=== PATIENT | male | born 1965 | race Caucasian/White ===

== ENCOUNTER 2021-10-17 10:13 | Emergency (ER) | payer OTHER, SELFPAY ==
[2021-10-17 10:20] VITALS: BP 130/67; PULSE 95; RESP 14; TEMP 36.8; O2SAT 96; BMI 26.3
--- NOTE | 2021-10-17 13:25 | ED.HA ---
HPI - Headache <ARNOLD Mo - Last Filed: 10/17/21 13:55> General Chief Complaint: Headache Stated Complaint: Fall, Headaches Time Seen by Provider: 10/17/21 13:13 Mode of arrival: Ambulatory History of Present Illness HPI Narrative: Is a 56-year-old male presents to the emergency department 10 days after a fall where he struck the front of his head on the ground. Patient denies any loss of consciousness, states that since this fall, he has had a headache. He denies any nausea or vomiting at the time of injury or currently. He states that he saw stars after the fall, that improved throughout the day. He complains of difficulty concentrating, having difficulty at work, feeling overwhelmed easily with tasks, sensitivity to light, and overall feeling difficulty focusing on simple tasks. He denies any vision changes, dizziness, neck pain, fever, weakness, incontinence, back pain, gait changes or other. He endorses some right wrist and left ankle pain but denies any significant tenderness, and can ambulate without difficulty. He states that he has been taking Tylenol and ibuprofen at home and continues to have a headache. He states that he has been working every day, and his symptoms are worsened by the work that he does. 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 Patient states that he has had some right wrist pain but denies any limitations of movement, new sensation changes, open wound, or changes to his daily activities. Related Data Allergies Allergy/AdvReac Type Severity Reaction Status Date / Time No Known Drug Allergies Allergy Verified 10/17/21 10:20 Review of Systems <ARNOLD Mo - Last Filed: 10/17/21 13:55> Review of Systems Narrative: General: denies fever, chills, malaise, sweats, fatigue, or weakness Head/Neck: Endorses having a frontal headache, denies neck pain, dizziness Eyes: denies visual changes, eye pain Cardio: denies chest pain, palpitations, edema Respiratory: denies dyspnea, cough, orthopnea GI: denies abdominal pain, nausea, vomiting, or diarrhea : denies dysuria, hematuria, urinary retention, frequency or incontinence MSK: Endorses some right wrist and left ankle pain pain, muscle weakness Skin: denies rash, itching, skin lesions or other Neuro: denies numbness, tingling Patient History <ARNOLD Mo - Last Filed: 10/17/21 13:55> Social History Smoking Status: Unknown if ever smoked Smoking Status: Unknown if ever smoked alcohol intake frequency: holidays/special occasions only Substance Use Type: does not use Exam <ARNOLD Mo - Last Filed: 10/17/21 13:55> Narrative Exam Narrative: Independently reviewed vitals signs and nursing notes. General: cooperative, comfortable, in no acute distress, well developed and well groomed Head: atraumatic, symmetrical facial expressions Neck: supple, atraumatic, without lymphadenopathy. Eyes: pupils equal round and reactive, EOMI, conjunctiva normal Nose: nares patent, no rhinorrhea Mouth/Throat: uvula midline, moist mucus membranes Cardiovascular: regular rate and rhythm, no peripheral edema, warm extremities Respiratory: normal effort, able to speak in complete sentences, no audible wheezing, stridor, or rales. No retractions or tachypnea. GI: abdomen soft, nontender to palpation, nondistended, no masses, no exquisite tenderness with exam, without guarding or rebound. MSK: moves all extremities, ambulatory w/steady gait, neurovascularly intact, no weakness Skin: brisk capillary refill, no rash, no erythema, bruise present on patient's forehead Neuro: normal speech and cognition, A&O x3, normal tone Psych: mental status is grossly normal, congruent mood, normal affect, pleasant and cooperative Initial Vital Signs Initial Vital Signs: Vital Signs Temperature 98.3 F 10/17/21 10:20 Pulse Rate 95 H 10/17/21 10:20 Respiratory Rate 14 10/17/21 10:20 Blood Pressure 130/67 10/17/21 10:20 Pulse Oximetry 96 10/17/21 10:20 <Payal Flores DO - Last Filed: 10/20/21 23:24> Initial Vital Signs Initial Vital Signs: Vital Signs Temperature 98.3 F 10/17/21 10:20 Pulse Rate 95 H 10/17/21 10:20 Respiratory Rate 14 10/17/21 10:20 Blood Pressure 130/67 10/17/21 10:20 Pulse Oximetry 96 10/17/21 10:20 Course <ARNOLD Mo - Last Filed: 10/17/21 13:55> Orders Ordered: Discontinued Medications Acetaminophen (Acetaminophen 325 Mg Tablet) 975 mg PO NOW ONE Stop: 10/17/21 13:24 Last Admin: 10/17/21 13:30 Dose: 975 mg Documented by: TERESSA Dexamethasone (Dexamethasone 10 Mg/Ml Vial) 10 mg PO NOW ONE Stop: 10/17/21 13:24 Last Admin: 10/17/21 13:31 Dose: 10 mg Documented by: TERESSA Ketorolac Tromethamine (Ketorolac 30 Mg/Ml Vial) 15 mg IM NOW ONE Stop: 10/17/21 13:24 Last Admin: 10/17/21 13:31 Dose: 15 mg Documented by: TERESSA Metoclopramide HCl (Metoclopramide Hcl 10 Mg Tablet) 10 mg PO NOW ONE Stop: 10/17/21 13:31 Last Admin: 10/17/21 13:32 Dose: 10 mg Documented by: TERESSA Pantoprazole Sodium (Pantoprazole Dr 20 Mg Tablet) 20 mg PO NOW ONE Stop: 10/17/21 13:25 Last Admin: 10/17/21 13:31 Dose: 20 mg Documented by: TERESSA Vital Signs Vital signs: Vital Signs - 8 hr 10/17/21 10:20 Temperature 98.3 F Pulse Rate 95 H Respiratory Rate 14 Blood Pressure 130/67 Pulse Oximetry 96 <Payal Flores DO - Last Filed: 10/20/21 23:24> Orders Ordered: Discontinued Medications Acetaminophen (Acetaminophen 325 Mg Tablet) 975 mg PO NOW ONE Stop: 10/17/21 13:24 Last Admin: 10/17/21 13:30 Dose: 975 mg Documented by: TERESSA Dexamethasone (Dexamethasone 10 Mg/Ml Vial) 10 mg PO NOW ONE Stop: 10/17/21 13:24 Last Admin: 10/17/21 13:31 Dose: 10 mg Documented by: TERESSA Ketorolac Tromethamine (Ketorolac 30 Mg/Ml Vial) 15 mg IM NOW ONE Stop: 10/17/21 13:24 Last Admin: 10/17/21 13:31 Dose: 15 mg Documented by: TERESSA Metoclopramide HCl (Metoclopramide Hcl 10 Mg Tablet) 10 mg PO NOW ONE Stop: 10/17/21 13:31 Last Admin: 10/17/21 13:32 Dose: 10 mg Documented by: TERESSA Pantoprazole Sodium (Pantoprazole Dr 20 Mg Tablet) 20 mg PO NOW ONE Stop: 10/17/21 13:25 Last Admin: 10/17/21 13:31 Dose: 20 mg Documented by: TERESSA Vital Signs Vital signs: Vital Signs - 8 hr 10/17/21 10:20 Temperature 98.3 F Pulse Rate 95 H Respiratory Rate 14 Blood Pressure 130/67 Pulse Oximetry 96 MDM - Headache <ARNOLD Mo - Last Filed: 10/17/21 13:55> [facility] Narrative Medical decision making narrative: 56-year-old male presents to the emergency department 10 days after a fall forward complaining of a headache, difficulty concentrating, and symptoms consistent with post concussive syndrome. Patient did not have loss of consciousness, states he saw stars but did not have any emesis, weakness, incontinence, changes to his gait, mental status changes, or other neuro deficit. 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 He states that he has had soreness, no numbness or tingling, without any range of motion deficit, is ambulatory without any deficit, weakness, no objective signs including edema, discoloration, or wound. Patient was question why he is telling multiple staff members why he is angry about no x-ray, was open to discussing doing imaging of these with him, and patient became angry, threatening staff, talking about suing this property wood and hardware outfitter, and he needs documentation of everything. He states that he has done here, does not 1 a follow medical advice, and will be leaving the emergency department against medical advice. Discharge Plan Departure Patient Disposition: Home Clinical Impression: Headache Qualifiers: Headache type: other headache syndrome Qualified Code(s): G44.89 - Other headache syndrome Acute wrist pain Qualifiers: Laterality: right Qualified Code(s): M25.531 - Pain in right wrist Acute ankle pain Qualifiers: Laterality: left Qualified Code(s): M25.572 - Pain in left ankle and joints of left foot Instructions: Concussion, Postconcussion Syndrome Stand Alone Forms: Work Release Note <Payal Flores DO - Last Filed: 10/20/21 23:24> Cosign ED Attending Lgature Attestation: I was immediately available in the department for consultation. Documentation has been reviewed. Case was discussed. I asked to them to document patient interaction.
[2021-10-17] MEDS: ACETAMINOPHEN 325 MG TABLET 975 MG PO (13:30)
[2021-10-17] MEDS: DEXAMETHASONE 10 MG/ML VIAL PO (13:31)
[2021-10-17] MEDS: KETOROLAC 30 MG/ML VIAL 15 MG IM (13:31)
[2021-10-17] MEDS: PANTOPRAZOLE DR 20 MG TABLET PO (13:31)
[2021-10-17] MEDS: METOCLOPRAMIDE HCL 10 MG TABLET PO (13:32)
[2021-10-17 13:48] VITALS: BP 156/74; PULSE 80; RESP 18; O2SAT 98
== END 2021-10-17 14:38 | disposition home or self-care (01) ==
PROVIDERS: Emergency Provider Nurse Practitioner Critical Care Medicine
DX: R51.9 Headache, unspecified (principal); M25.531 Pain in right wrist; M25.572 Pain in left ankle and joints of left foot; Z53.29 Procedure and treatment not carried out because of patient's decision for other reasons
CPT/HCPCS: 96372; 99283; J1100; J1885